=== PATIENT | female | born 1935 | race Hispanic/Latino ===

== ENCOUNTER 2018-05-22 15:28 | Outpatient (CLI) | payer MEDICARE ==
--- NOTE | 2018-05-22 16:26 | XRay Report ---
CHEST TWO VIEWS: 05/22/18 15:28:00 CLINICAL: Fever and chills. COMPARISON: 02/27/16 FINDINGS: Patchy opacities of the left lower lobe are new compared to the previous exam. The rest of the lungs are clear.No pleural effusion. Normal heart and pulmonary vessels. Aortic tortuosity and ectasia.Marked thoracic kyphosis is unchanged compared to the previous exam. Stable anterior wedging of midthoracic vertebral bodies with no fracture lines. IMPRESSION: Acute left lower lobe pneumonia without consolidation.
== END 2018-05-22 15:29 | disposition home or self-care (01) ==
LOC: SPVIMAG 15:28
PROVIDERS: ATTEND Internal Medicine
DX: J18.9 Pneumonia, unspecified organism (principal)
CPT/HCPCS: 71046